=== PATIENT | male | born 1970 | race Caucasian/White ===

== ENCOUNTER → 2017-01-05 | Outpatient (CLI) | payer OTHER ==
--- NOTE | 2017-01-05 14:25 | DI ---
History: Ankle pain Comparison: None Findings: No signal intensity to indicate marrow contusion, edema, or fracture. There is a roughly 1.0 x 1.1 x 1.0 cm well delineated smoothly marginated cyst in the body of the nathaniel caneus. Flexor tendons intact Extensor tendons intact Anterior and posterior talofibular ligaments intact. Calcaneofibular ligament intact. Deltoid ligament. No osteochondral defect of the talar dome. Subtalar joint unremarkable in appearance. Sinus Tarsi unremarkable. No inflammatory changes or sequestered fluid collections in the soft tissues surrounding the ankle Impression There is a 1 cm cyst in the body of the calcaneus. The remainder of the study is unremarkable
== END ==
LOC: MRI 12:52
PROVIDERS: ATTEND Orthopaedic Surgery
DX: M25.572 Pain in left ankle and joints of left foot (principal)
CPT/HCPCS: 73721